=== PATIENT | female | born 1975 | race Caucasian/White ===

== ENCOUNTER 2016-08-29 09:53 | Emergency (ER) | payer OTHER ==
[2016-08-29 10:04] VITALS: BP 112/72; PULSE 84; RESP 16; TEMP 98.4
--- NOTE | 2016-08-29 10:29 | ED ---
General Adult HPI - General Chief complaint: Dental/Oral Stated complaint: DENTAL PAIN, ABSCESS Time Seen by Provider: 08/29/16 10:18 Source: patient, family, RN notes reviewed Mode of arrival: ambulatory Limitations: no limitations - History of Present Illness Initial comments: Chief complaint history of present illness a 40-year-old female here for complaint of dental caries and pain. The patient presents with significant dental caries to tooth #14. This been ongoing for a long time. She states that the dentist wouldn't deal Thurn to after she delivered +6 months ago into a dentist. Patient is 10 weeks' . - Related Data Home Medications Medication Instructions Recorded Confirmed Methadone [Dolophine] 123 mg PO DAILY 08/29/16 08/29/16 Previous Rx's Medication Instructions Recorded Ibuprofen [Motrin] 800 mg PO Q8HR PRN #20 tab 08/29/16 Penicillin V Potassium [Pen Vee K] 500 mg PO QID #40 tab 08/29/16 Allergies Allergy/AdvReac Type Severity Reaction Status Date / Time No Known Allergies Allergy Verified 08/29/16 10:04 Review of Systems ROS Statement: Those systems with pertinent positive or pertinent negative responses have been documented in the HPI. Review of systems. No headache or visual acuity changes she has pain to her tooth #14. No swelling to the cheek or jaw. No stiff neck or neck pain denies any chest pain shortness breath GI/ problems denies any trouble of appetite. Denies any neuro deficits. All systems were reviewed. Past medical problems asthma. Surgeries bladder suspension. Family history mother had leukemia and TIAs father had a stroke. Patient denies ALLERGIES she does smoke strongly encouraged stop smoking. Denies alcohol use. ROS Other: All systems not noted in ROS Statement are negative. Past Medical History Past Medical History: Osteoarthritis (OA) History of Any Multi-Drug Resistant Organisms: MRSA Date of last positivie culture/infection: 2005 MDRO Source:: abdomen Additional Past Surgical History / Comment(s): bladder suspension Past Psychological History: Anxiety, Depression Smoking Status: Current every day smoker Past Alcohol Use History: None Reported Past Drug Use History: None Reported General Exam - General Exam Comments Initial Comments: General: The patient is awake and alert, complaining of dental pain specifically to tooth #14. Vital signs temp 98.4 pulse 84 respiratory rate 16 pulse ox 99% room air blood pressure 112/72 Eye: Pupils are equal, round and reactive to light, extra-ocular movements are intact ; there is normal conjunctiva bilaterally. No signs of icterus. Ears, nose, mouth and throat: There are moist mucous membranes and no oral lesions. Uvula is mildly misshapened but otherwise normal. Patient has widespread dental carries her specific complaints tooth #14. No abscess noted to the gingival line. Neck: The neck is supple, there is no tenderness , no anterior cervical lymphadenopathy. Cardiovascular: There is a regular rate and rhythm. No murmur, rub or gallop is appreciated. Respiratory: No complaint of any respiratory distress, lungs are clear to auscultation, no wheezes. No complaints of any gastrointestinal problems or urinary problems. No complaint of any balance problems. Denies any other problems such as rashes. Limitations: no limitations Course Vital Signs 08/29/16 09:58 Temperature 98.4 F Pulse Rate 84 Respiratory 16 Rate Blood Pressure 112/72 O2 Sat by Pulse 99 Oximetry Medical Decision Making - Medical Decision Making Medical decision making the patient be placed on penicillin for pain medication. Strongly advised to stop smoking as well as call follow-up with a dentist as soon as possible for evaluation and treatment. Possibility of erosion into the maxillary sinus and further was discussed with patient. Disposition Clinical Impression: Dental caries into pulp Disposition: HOME SELF-CARE Condition: Stable Instructions: Dental Caries (ED), Toothache (ED) Additional Instructions: Follow-up with a dentist as soon as possible. Use Pen-Vee K and pain medication as directed Prescriptions: Ibuprofen [Motrin] 800 mg PO Q8HR PRN #20 tab PRN Reason: Pain Penicillin V Potassium [Pen Vee K] 500 mg PO QID #40 tab Time of Disposition: 10:29
== END 2016-08-29 10:37 | disposition home or self-care (01) ==
LOC: EC 09:53
DX: K02.9 Dental caries, unspecified (principal); M19.90 Unspecified osteoarthritis, unspecified site; F17.200 Nicotine dependence, unspecified, uncomplicated; Z86.14 Personal history of Methicillin resistant Staphylococcus aureus infection; Z79.891 Long term (current) use of opiate analgesic
CPT/HCPCS: 99282

== ENCOUNTER 2019-11-23 21:21 | Emergency (ER) | payer OTHER ==
--- NOTE | 2019-11-23 22:57 | ED ---
Upper Extremity HPI - General Chief Complaint: Extremity Injury, Upper Stated Complaint: Rt Shoulder Pain Time Seen by Provider: 11/23/19 22:05 Source: patient Mode of arrival: ambulatory Limitations: no limitations - History of Present Illness Initial Comments: Patient is a 43-year-old female presenting to the emergency Department with complaints of right shoulder and left hip pain after falling 1 week ago. Patient states she just lost her balance and fell forward last week. She states she has been walking with a slight limp secondary to her left hip pain. She denies any previous surgeries or injuries to her head. She states the majority of her pain is in her right shoulder. She states she is unable to use or move her right shoulder. Patient states she has not had any previous injuries to her right shoulder. She has no further complaints from the fall. Of note, patient does admit to being a IV drug user. She states she was supposed to start rehab today however they called her and postponed it to early November. - Related Data Home Medications Medication Instructions Recorded Confirmed Methadone [Dolophine] 123 mg PO DAILY 08/29/16 08/29/16 Previous Rx's Medication Instructions Recorded Ibuprofen [Motrin] 800 mg PO Q8HR PRN #20 tab 08/29/16 Penicillin V Potassium [Pen Vee K] 500 mg PO QID #40 tab 08/29/16 Allergies Allergy/AdvReac Type Severity Reaction Status Date / Time No Known Allergies Allergy Verified 11/23/19 22:03 Review of Systems ROS Statement: Those systems with pertinent positive or pertinent negative responses have been documented in the HPI. ROS Other: All systems not noted in ROS Statement are negative. Past Medical History Past Medical History: Osteoarthritis (OA) History of Any Multi-Drug Resistant Organisms: MRSA Date of last positivie culture/infection: 2005 MDRO Source:: abdomen Additional Past Surgical History / Comment(s): bladder suspension Past Psychological History: Anxiety, Depression Smoking Status: Current every day smoker Past Alcohol Use History: None Reported Past Drug Use History: None Reported General Exam - General Exam Comments Initial Comments: GENERAL: Well-appearing, well-nourished and in mild distress due to pain. HEAD: Atraumatic, normocephalic. EYES: Pupils equal round and reactive to light, extraocular movements intact, sclera anicteric, conjunctiva are normal. ENT: TMs normal, nares patent, oropharynx clear without exudates. Moist mucous membranes. NECK: Normal range of motion, supple without lymphadenopathy or JVD. LUNGS: Breath sounds clear to auscultation bilaterally and equal. No wheezes rales or rhonchi. HEART: Regular rate and rhythm without murmurs, rubs or gallops. ABDOMEN: Soft, nontender, normoactive bowel sounds. No guarding, no rebound. No masses appreciated. : Deferred EXTREMITIES: Patient has mild pain with palpation of the lateral left hip. She does have full range of motion of the hip. Strength is 5 out of 5 lower extremities bilaterally. Patient has pain with palpation of the right shoulder joint. She has no range of motion secondary to increase in pain. She is neurovascular intact. No pitting or edema. No clubbing or cyanosis. NEUROLOGICAL: Normal speech, normal gait. PSYCH: Normal mood, normal affect. SKIN: Warm, Dry, normal turgor, no rashes or lesions noted. Limitations: no limitations Course Vital Signs 11/23/19 11/24/19 11/24/19 22:00 00:36 02:30 Temperature 98.7 F Pulse Rate 100 92 82 Respiratory 16 18 16 Rate Blood Pressure 157/94 136/87 127/78 O2 Sat by Pulse 100 99 98 Oximetry 11/24/19 11/24/19 11/24/19 02:35 02:40 02:45 Temperature Pulse Rate 89 83 89 Respiratory 16 16 16 Rate Blood Pressure 126/86 127/86 132/77 O2 Sat by Pulse 100 100 100 Oximetry 11/24/19 11/24/19 11/24/19 03:00 03:05 03:10 Temperature Pulse Rate 80 89 81 Respiratory 16 16 16 Rate Blood Pressure 122/79 123/94 127/78 O2 Sat by Pulse 100 100 98 Oximetry 11/24/19 11/24/19 11/24/19 03:15 03:20 03:25 Temperature Pulse Rate 80 81 80 Respiratory 18 16 16 Rate Blood Pressure 129/78 129/80 129/80 O2 Sat by Pulse 98 98 98 Oximetry 11/24/19 11/24/19 03:30 03:35 Temperature Pulse Rate 80 81 Respiratory 18 16 Rate Blood Pressure 130/77 129/80 O2 Sat by Pulse 98 98 Oximetry Procedures - Orthopedic Joint Reduction Joint #1 Consent Obtained: verbal consent, written consent Side: right Joint Reduction Location: shoulder Analgesia: procedural sedation, hematoma block Local Anesthetic Used: Lidocaine 1% Amount of Anesthetic Used (mLs): 9 Shoulder Technique Used (if applicable): traction/counter-traction, scapula manipulation, external rotation Technique Used: traction/counter-traction, direct manipulation Post-Reduction Neuro Exam: intact Post-Reduction Vascular Exam: intact Post Reduction X-Ray Obtained: Yes (Local Reduction Confirmed by X-Ray.) Post Reduction X-Ray Results: reduced Splint Applied: No (Sling applied.) Patient Tolerated Procedure: well Medical Decision Making - Medical Decision Making She is a 43-year-old female here for right shoulder pain and left hip pain after falling 1 week ago. X-rays of the left hip reveal no acute fractures/dislocations. X-rays of the right shoulder reveal an anterior dislocation. Patient was given pain control. I did attempt a conscious reduction using lidocaine block, however was unsuccessful. At that point we did sedate the patient, with Dr. Lr, and perform a conscious sedation. Anatomical reduction of the right shoulder was obtained. Patient tolerated procedure well. Patient was placed in a sling. She is stable for discharge. She will follow up with orthopedics. She'll be given tramadol starter pack. Patient is in agreement with this plan of care. Case discussed with Dr. Lr. Disposition Clinical Impression: Anterior dislocation of right shoulder Disposition: HOME SELF-CARE Condition: Stable Instructions (If sedation given, give patient instructions): Moderate Sedation (ED), Closed Reduction (ED) Additional Instructions: Please return to the Emergency Department if symptoms worsen or any other concerns. Keep arm in sling until follow up with orthopedics. May take Motrin or Tylenol for discomfort. Is patient prescribed a controlled substance at d/c from ED?: No Referrals: None,Stated [Primary Care Provider] - 1-2 days Magen Vicente, [Medical Doctor] - 1-2 days
--- NOTE | 2019-11-23 23:17 | XR ---
EXAMINATION TYPE: XR Hip Complete LT DATE OF EXAM: 11/23/2019 COMPARISON: NONE HISTORY: Hip pain TECHNIQUE: 2 views FINDINGS: There is no sign of fracture nor dislocation. Proximal femur is intact. Acetabulum appears intact. IMPRESSION: Negative left hip joint exam.
--- NOTE | 2019-11-23 23:20 | XR ---
EXAMINATION TYPE: XR shoulder complete RT DATE OF EXAM: 11/23/2019 COMPARISON: NONE HISTORY: Pain TECHNIQUE: 2 views FINDINGS: There is anterior dislocation of the glenohumeral joint. I see no fracture. There are no pa thologic calcifications. IMPRESSION: Anterior shoulder joint dislocation.
[2019-11-23] MEDS ORDERED: MORPHINE SULFATE 4 MG/ML SYRINGE IVP STA (23:24)
[2019-11-24] MEDS ORDERED: LIDOCAINE 1% INJ 10MG/ML (20 ML MDV) SQ ONE (00:06)
[2019-11-24] MEDS ORDERED: MORPHINE SULFATE 4 MG/ML SYRINGE IM STA (00:32)
[2019-11-24] MEDS ORDERED: MIDAZOLAM 1 MG/ML 5 ML VIAL IV STA (01:42)
[2019-11-24] MEDS ORDERED: PROPOFOL 10 MG/ML 20 ML VIAL IV ONE ×2 (01:58→02:35)
--- NOTE | 2019-11-24 03:10 | XR ---
EXAMINATION TYPE: XR shoulder limited RT DATE OF EXAM: 11/24/2019 COMPARISON: NONE HISTORY: Post reduction TECHNIQUE: Single view FINDINGS: There appears to be anatomic reduction of the glenohumeral joint. I see no fracture line. IMPRESSION: Anatomic reduction. Limited exam.
--- NOTE | 2019-11-24 03:11 | XR ---
EXAMINATION TYPE: XR shoulder limited RT DATE OF EXAM: 11/24/2019 COMPARISON: Today HISTORY: Post reduction TECHNIQUE: Single view FINDINGS: There is anatomic reduction of the glenohumeral joint. I see no fracture. Scapula appears i ntact. IMPRESSION: Anatomic reduction.
[2019-11-24] MEDS ORDERED: traMADol 50 MG STARTER PACK 3 TAB BTL PO STA (03:29)
[2019-11-24 03:39] VITALS: RESP 16
[2019-11-24 03:58] VITALS: BP 122/87; PULSE 80; TEMP 98.2
--- NOTE | 2019-12-07 07:17 | CDI ---
dear Claudine Reich, Please do addendum for procedure CONSCIOUS MODERATE SEDATION done with time required , thank you , JUWAN, Facility Service Manager, If you have any questions, please contact [employer] Operator at [phone] [facility]
--- NOTE | 2019-12-07 16:16 | ED ---
Medical Decision Making - Medical Decision Making 44 female DF for evaluation of right shoulder dislocation, shoulder is reduced under procedural sedation, this is documentation of procedural sedation Disposition Clinical Impression: Anterior dislocation of right shoulder Disposition: HOME SELF-CARE Condition: Stable Instructions (If sedation given, give patient instructions): Moderate Sedation (ED), Closed Reduction (ED) Additional Instructions: Please return to the Emergency Department if symptoms worsen or any other concerns. Keep arm in sling until follow up with orthopedics. May take Motrin or Tylenol for discomfort. Is patient prescribed a controlled substance at d/c from ED?: No Referrals: Magen Vicente, [Medical Doctor] - 1-2 days None,Stated [Primary Care Provider] - 1-2 days Procedures - [place] Protocol (Time Out) Procedure Performed:: reduction of right shoulder Performing Provider: Angel Lr Nurse: Ernesto Hankins Respiratory Therapist: Kenia Hinton Patient Identification (2 identifiers required): Verbal, Arm Band, Name, Birthdate, Medical Record Number Patient/Legal Taker [employer] has Confirmed: Identity, Site, Procedure, Consent Site: right shoulder Site Marked: Yes Site Verified With Patient/Guardian: Yes Final Confirmation: Procedure, Patient Position, Radiographs, Confirmed w/Provider - Procedural Sedation Procedural Sedation Start Time: 02:30 Procedural Sedation Stop Time: 03:05 ASA Class: I Mallampati Airway Score: 2 Preparation: campus monitor applied, pulse oximeter, capnometry used, supplemental O2 applied, reversal agents at bedside, IV secured IV Propofol Dose (mgs): 300 Complications: none Interventions: oxygen applied Patient Tolerated Procedure: well
== END 2019-11-24 03:58 | disposition home or self-care (01) ==
LOC: EC 21:21
DX: S43.084A Other dislocation of right shoulder joint, initial encounter (principal); M25.552 Pain in left hip; M19.90 Unspecified osteoarthritis, unspecified site; F17.200 Nicotine dependence, unspecified, uncomplicated; Z79.891 Long term (current) use of opiate analgesic; Z86.14 Personal history of Methicillin resistant Staphylococcus aureus infection; W01.198A Fall on same level from slipping, tripping and stumbling with subsequent striking against other object, initial encounter; Y93.01 Activity, walking, marching and hiking
CPT/HCPCS: 99283; 23650; 99152; 99153; 96374; 96372; 73502; 73020; 73030; J2270; J2001; J2250; J2704